=== PATIENT | female | born 1970 | race Caucasian/White ===

== ENCOUNTER 2019-02-14 13:05 | Emergency (ER) | payer MEDICAID ==
[~2019-02-14] VITALS: Ht 157.5 cm; Wt 99.1 kg
[2019-02-14 13:29] VITALS: BP 105/86
[2019-02-14] MEDS ORDERED: HUM SUBQ (13:36)
[2019-02-14] MEDS ORDERED: LANTUS SUBQ (13:36)
[2019-02-14] MEDS ORDERED: TRAM50TA1 PO (13:36)
--- NOTE | 2019-02-14 13:37 | NUR ---
PT TO LOBBY
[2019-02-14] MEDS ORDERED: NACL 0.9% 1,000 ML IV ONE (14:55)
--- NOTE | 2019-02-14 15:17 | NUR ---
PT BIB SELD C/O RLQ ABD, R GROIN PAIN AND NAUSEA X 1 YEAR, WORSE X YESTERDAY. DENIES VOMITING, NO DIARRHEA. NO URINARY COMPLAINTS. TOOK TRAMADOL AT 1100 WITH SOME RELIEF. VSS. ER MD TO SEE PT HX: DIABETES, HTN, HYSTERECTOMY RX: TRAMADOL, HUMALOG, LANTUS, BS: [id number]
[2019-02-14 15:19] LABS: BASOPHILS # (AUTO) 0.1 K/uL (0.00-0.22); BASOPHILS % (AUTO) 0.6 % (0.0-2.0); EOSINOPHILS # (AUTO) 0.2 K/uL (0-0.4); EOSINOPHILS % (AUTO) 2.2 % (0.0-4.0); HEMATOCRIT 42.5 % (36-48); LYMPHOCYTES # (AUTO) 4.1 K/uL (2.5-16.5); LYMPHOCYTES % (AUTO) 37.9 % (20.5-51.1); MEAN CORPUSCULAR HEMOGLOBIN 28 pg (27-31); MEAN CORPUSCULAR HGB CONC 33 g/dL (33-37); MEAN CORPUSCULAR VOLUME 85.4 fL (80-94); MONOCYTES # (AUTO) 0.7 K/uL (0.8-1.0); NEUTROPHILS # (AUTO) 5.8 K/uL (1.8-7.7); NEUTROPHILS % (AUTO) 53.3 % (42.2-75.2); PLATELET COUNT (AUTO) 325 K/uL (140-450); RED BLOOD CELL COUNT(AUTO) 4.97 MIL/uL (4.20-5.40); RED CELL DISTRIBUTION WIDTH 14.1 % (11.6-13.7); WHITE BLOOD COUNT (AUTO) 10.9 K/uL (4.8-10.8)
[2019-02-14 15:29] LABS: APPEARANCE,URINE CLOUDY (CLEAR); BILIRUBIN,URINE NEGATIVE (NEGATIVE); BLOOD, URINE NEGATIVE (NEGATIVE); COLOR,URINE YELLOW (YELLOW); LEUKOCYTE ESTERASE ,URINE NEGATIVE (NEGATIVE); NITRITE, URINE NEGATIVE (NEGATIVE); PH,URINE 5.5 (5.0-9.0); UGLUCOSE 3+ (NEGATIVE)
[2019-02-14 15:37] LABS: ANION GAP 10.7 (8-16); CARBON DIOXIDE 26.3 mmol/L (21-32); CREATININE 0.8 mg/dL (0.6-1.3)
[2019-02-14 15:42] LABS: ALBUMIN 3.4 g/dL (3.4-5.0); TOTAL BILIRUBIN 0.4 mg/dL (0.0-1.0)
--- NOTE | 2019-02-14 16:22 | NUR ---
PT TAKEN TO CT VIA ANDREW
--- NOTE | 2019-02-14 16:22 | NUR ---
PT GOING TO CT AT THIS TIME
--- NOTE | 2019-02-14 17:00 | NUR ---
PT RESTING IN BED W/ EYES OPEN. PT REPORTS PAIN AT A TOLERABLE 6/10. VSS. PT DENIES NAUSEA AT THIS TIME.
[2019-02-14] MEDS ORDERED: KETOROLAC 30 MG/ML VIAL IVP ONE (17:35)
--- NOTE | 2019-02-14 17:36 | NUR ---
RADIOLOGY STAFF STTED THAT CT IS BEING READ AT THIS TIME AND THAT IT HAS BEEN SENT OUT TO BE READ.
--- NOTE | 2019-02-14 17:43 | NUR ---
PT STATED HER PAIN IS AT 8/10 AND WOULD LIKE NON-OPIOD PAIN MEDICINE, ER MD NOTIFIED.
[2019-02-14 18:43] VITALS: BP 115/70
--- NOTE | 2019-02-14 18:44 | NUR ---
Patient discharged with v/s stable. Written and verbal after care instructions given and explained. Patient verbalized understanding. Ambulatory with steady gait. All questions addressed prior to discharge. Advised to follow up with PMD.
== END 2019-02-14 18:44 | disposition home or self-care (01) ==
LOC: MED 13:05
DX: R10.31 Right lower quadrant pain (principal); R35.0 Frequency of micturition; R39.15 Urgency of urination; E11.9 Type 2 diabetes mellitus without complications; Z79.4 Long term (current) use of insulin; Z79.1 Long term (current) use of non-steroidal anti-inflammatories (NSAID); Z90.710 Acquired absence of both cervix and uterus; Z90.89 Acquired absence of other organs; Z98.890 Other specified postprocedural states
CPT/HCPCS: 36415; 74177; 80053; 81003; 82948; 85025; 96374; 99284; J1885; J7030; Q9967

== ENCOUNTER 2019-03-30 12:42 | Emergency (ER) | payer MEDICAID ==
[~2019-03-30] VITALS: Ht 157.5 cm; Wt 98.9 kg
[~2019-03-30 12:42] MED LIST: HUM SUBQ; LANTUS SUBQ; TRAM50TA1 PO
[2019-03-30 12:51] VITALS: BP 149/72
--- NOTE | 2019-03-30 13:21 | NUR ---
PT AMBULATED TO BED 01.
--- NOTE | 2019-03-30 13:38 | NUR ---
pt is 48yrs F c/o left hand pain radiating up to the elbowx 1 month. Pain 8/10 sharp. Took tramadol 50 mg today to mild relief. Denies trauma, numbness, tingling, repetitive motions. Unable to grasps objects easily. Per pt , pain has been there since last two months, started to hurt badly since yesterday. Pian increases with touch on the inner side of the palm. Denies N,V, Chills or fever at this time. Pt seen by ER md, to get the X-Ray. will continue to monitor pt. Hx- HLD, DM, HTN, asthma , Hystrectomy.
[2019-03-30] MEDS ORDERED: KETOROLAC 60 MG/2 ML VIAL IM ONE (13:40)
[2019-03-30 14:38] VITALS: BP 149/72
--- NOTE | 2019-03-30 14:41 | NUR ---
Patient discharged with v/s stable. Written and verbal after care instructions given and explained. Patient alert, oriented and verbalized understanding of instructions. Ambulatory with steady gait. All questions addressed prior to discharge. ID band removed. Patient advised to follow up with PMD. Rx of robaxin, medrol dosepak and motrin given. Patient educated on indication of medication including possible reaction and side effects. Opportunity to ask questions provided and answered.
== END 2019-03-30 14:41 | disposition home or self-care (01) ==
LOC: MED 12:42
DX: M54.12 Radiculopathy, cervical region (principal); M79.642 Pain in left hand; M79.641 Pain in right hand; I10 Essential (primary) hypertension; E11.9 Type 2 diabetes mellitus without complications; Z90.89 Acquired absence of other organs; Z90.710 Acquired absence of both cervix and uterus; Z79.4 Long term (current) use of insulin
CPT/HCPCS: 72040; 73130; 96372; 99283; J1885

== ENCOUNTER 2020-02-04 16:51 | Emergency (ER) | payer MEDICAID ==
[~2020-02-04] VITALS: Ht 157.5 cm; Wt 95.3 kg
[2020-02-04 16:56] VITALS: BP 149/83
--- NOTE | 2020-02-04 17:13 | NUR ---
49 YO FEMALE C/O RIGHT SIDE UPPER BACK PAIN/ITCHINESS X3 WEEKS. PT HAS BEEN TAKING TYLENOL FOR PAIN, BUT IT IS NOT HELPING. DENIES ANY DYSURIA, URINARY FREQUENCY. PMH: DM2, ARTHRITIS, ASTHMA, NKA
[2020-02-04] MEDS ORDERED: KETOROLAC 60 MG/2 ML VIAL IM ONE (17:20)
[2020-02-04 17:42] LABS: BASOPHILS # (AUTO) 0.1 K/uL (0.00-0.22); BASOPHILS % (AUTO) 0.7 % (0.0-2.0); EOSINOPHILS # (AUTO) 0.3 K/uL (0-0.4); EOSINOPHILS % (AUTO) 2.9 % (0.0-4.0); HEMATOCRIT 42.2 % (36-48); HEMOGLOBIN 13.6 g/dL (12.0-16.0); LYMPHOCYTES # (AUTO) 3.9 K/uL (2.5-16.5); MEAN CORPUSCULAR HEMOGLOBIN 28 pg (27-31); MEAN CORPUSCULAR HGB CONC 32 g/dL (33-37); MEAN CORPUSCULAR VOLUME 87.1 fL (80-94); MONOCYTES # (AUTO) 0.7 K/uL (0.8-1.0); MONOCYTES % (AUTO) 6.7 % (1.7-9.3); NEUTROPHILS # (AUTO) 5.6 K/uL (1.8-7.7); NEUTROPHILS % (AUTO) 52.7 % (42.2-75.2); PLATELET COUNT (AUTO) 360 K/uL (140-450); RED BLOOD CELL COUNT(AUTO) 4.84 MIL/uL (4.20-5.40); RED CELL DISTRIBUTION WIDTH 14.5 % (11.6-13.7); WHITE BLOOD COUNT (AUTO) 10.6 K/uL (4.8-10.8)
[2020-02-04 17:43] LABS: APPEARANCE,URINE CLEAR (CLEAR); BILIRUBIN,URINE NEGATIVE (NEGATIVE); BLOOD, URINE NEGATIVE (NEGATIVE); COLOR,URINE YELLOW (YELLOW); LEUKOCYTE ESTERASE ,URINE NEGATIVE (NEGATIVE); NITRITE, URINE NEGATIVE (NEGATIVE); PH,URINE 5.5 (5.0-9.0); UGLUCOSE 2+ (NEGATIVE)
[2020-02-04 17:54] LABS: ALBUMIN 3.4 g/dL (3.4-5.0); ANION GAP 12.9 (8-16); CARBON DIOXIDE 28.8 mmol/L (21-32); CREATININE 0.7 mg/dL (0.6-1.3); POTASSIUM 4.7 mmol/L (3.5-5.1); TOTAL BILIRUBIN 0.4 mg/dL (0.0-1.0)
[2020-02-04 18:30] VITALS: BP 149/83
--- NOTE | 2020-02-04 18:30 | NUR ---
Patient discharged with v/s stable. Written and verbal after care instructions given and explained. Patient alert, oriented and verbalized understanding of instructions. Ambulatory with steady gait. All questions addressed prior to discharge. ID band removed. Patient advised to follow up with PMD. Rx of SULFACETAMIDE SODIUM given. Patient educated on indication of medication including possible reaction and side effects. Opportunity to ask questions provided and answered.
== END 2020-02-04 18:29 | disposition home or self-care (01) ==
LOC: MED 16:51
DX: S23.3XXA Sprain of ligaments of thoracic spine, initial encounter (principal); H10.9 Unspecified conjunctivitis; J45.909 Unspecified asthma, uncomplicated; E11.9 Type 2 diabetes mellitus without complications; I10 Essential (primary) hypertension; Z79.4 Long term (current) use of insulin; Z98.890 Other specified postprocedural states; Z79.899 Other long term (current) drug therapy; X58.XXXA Exposure to other specified factors, initial encounter; Y93.89 Activity, other specified; Y92.89 Other specified places as the place of occurrence of the external cause; Y99.8 Other external cause status
CPT/HCPCS: 36415; 80053; 81003; 85025; 96372; 99283; J1885

== ENCOUNTER 2021-03-26 17:15 | Emergency (ER) | payer MEDICAID, OTHER ==
[~2021-03-26] VITALS: Ht 157.5 cm; Wt 89.8 kg
[2021-03-26 17:25] VITALS: BP 144/74
[2021-03-26] MEDS ORDERED: NACL 0.9% 500 ML IV ONE (18:00)
[2021-03-26] MEDS ORDERED: MORPHINE SULFATE 4 MG/ML SYR IVP ONE (18:00)
[2021-03-26] MEDS ORDERED: METOCLOPRAMIDE 10 MG/2 ML INJ VIAL IVP ONE (18:00)
--- NOTE | 2021-03-26 18:16 | NUR ---
50 YO FEMALE BIBS WITH C/O 8/10 UPPER BACK PAIN X 2 WEEKS. PAIN DESCRIBED 8/10, BURNING, MORE ON RIGHT SIDE THAN LEFT. DENIES TRAUMA OR INJURY TO AREA. ALSO REPORTS PALPITATIONS, WEAKNESS AND BODY ACHES. LAST TYLENOL TAKEN LAST NIGHT. A&OX4, VSS. PMH: DM, ASTHMA MEDS: ALBUTEROL, INSULIN, METFORMIN NKA
[2021-03-26 18:17] LABS: BASOPHILS # (AUTO) 0.1 K/uL (0.00-0.22); BASOPHILS % (AUTO) 0.7 % (0.0-2.0); EOSINOPHILS # (AUTO) 0.3 K/uL (0-0.4); EOSINOPHILS % (AUTO) 2.3 % (0.0-4.0); HEMATOCRIT 37.6 % (36-48); HEMOGLOBIN 12.4 g/dL (12.0-16.0); LYMPHOCYTES # (AUTO) 4.7 K/uL (2.5-16.5); LYMPHOCYTES % (AUTO) 41.2 % (20.5-51.1); MEAN CORPUSCULAR HEMOGLOBIN 29 pg (27-31); MEAN CORPUSCULAR HGB CONC 33 g/dL (33-37); MEAN CORPUSCULAR VOLUME 88.2 fL (80-94); MONOCYTES # (AUTO) 0.7 K/uL (0.8-1.0); MONOCYTES % (AUTO) 6.1 % (1.7-9.3); NEUTROPHILS # (AUTO) 5.7 K/uL (1.8-7.7); NEUTROPHILS % (AUTO) 49.7 % (42.2-75.2); PLATELET COUNT (AUTO) 353 K/uL (140-450); RED BLOOD CELL COUNT(AUTO) 4.26 MIL/uL (4.20-5.40); WHITE BLOOD COUNT (AUTO) 11.5 K/uL (4.8-10.8)
--- NOTE | 2021-03-26 18:23 | NUR ---
PER ERMD 12 LEAD WAS DONE ON PT AND CAME BACK NSR AT 92 HR.
[2021-03-26 18:30] LABS: ALBUMIN 3.1 g/dL (3.4-5.0); ANION GAP 11.3 (8-16); CARBON DIOXIDE 28.5 mmol/L (21-32); CREATININE 0.7 mg/dL (0.6-1.3); POTASSIUM 3.8 mmol/L (3.5-5.1); TOTAL BILIRUBIN 0.2 mg/dL (0.0-1.0)
--- NOTE | 2021-03-26 18:39 | NUR ---
LACTIC ACID 2.6, MADE AWARE.
[2021-03-26 19:14] LABS: BILIRUBIN,URINE NEGATIVE (NEGATIVE); BLOOD, URINE NEGATIVE (NEGATIVE); LEUKOCYTE ESTERASE ,URINE NEGATIVE (NEGATIVE); NITRITE, URINE NEGATIVE (NEGATIVE); UGLUCOSE 3+ (NEGATIVE)
[2021-03-26 19:17] LABS: APPEARANCE,URINE CLEAR (CLEAR); COLOR,URINE STRAW (YELLOW)
--- NOTE | 2021-03-26 19:26 | NUR ---
REPORT AND CONTINUATION OF CARE GIVEN TO CRISTA DELCID.
[2021-03-26] MEDS ORDERED: HYDROcodone/APAP 5/325 MG 1 TAB TAB PO ONE (19:50)
--- NOTE | 2021-03-26 20:12 | NUR ---
LAB WILL PERFORM TEST AT THIS TIME.
--- NOTE | 2021-03-26 20:21 | NUR ---
PER LAB HCG NEG, CT NOTIFIED
--- NOTE | 2021-03-26 22:50 | NUR ---
PATIENT CLEARED FOR DISCHARGE WITH NO FURTHER COMPLAITNS OR QUESTIONS. ADVISED TO FOLLOW UP WITH PCP AND RETURN IF CONDITION WORSENS.
[2021-03-26 22:51] VITALS: BP 137/83
--- NOTE | 2021-03-27 19:34 | NUR ---
LATE ENTRY- NORMAL SALINE 0.9% DISCONTINUED AT 1200
== END 2021-03-26 22:50 | disposition home or self-care (01) ==
LOC: MED 17:15
DX: R10.13 Epigastric pain (principal); Z79.899 Other long term (current) drug therapy
CPT/HCPCS: 36415; 71045; 74177; 76700; 80053; 81003; 83605; 83690; 84484; 85025; 93005; 96361; 96374; 99285; J2765; J7030; Q0092; Q9967; J2270

== ENCOUNTER 2021-12-03 21:22 | Emergency (ER) | payer OTHER ==
[~2021-12-03] VITALS: Ht 152.4 cm; Wt 90.7 kg
[2021-12-03 21:56] VITALS: BP 141/85
--- NOTE | 2021-12-03 22:30 | NUR ---
RECEIVED IN BED 9 FROM LOBBY WITH C/O L SIDED PELVIC PAIN RADIATING TO L LOWER BACK X 5 DAYS. DENIES URINARY BURNING, FREQUENCY, OR INJURY TO AREA. MEDHX: DIABETES II, HTN NKA SURGICAL HX: HERNIA REPAIR, APENDIX, HYSTERECTOMY.
[2021-12-03 22:46] LABS: APPEARANCE,URINE CLEAR (CLEAR); BILIRUBIN,URINE NEGATIVE (NEGATIVE); BLOOD, URINE NEGATIVE (NEGATIVE); COLOR,URINE YELLOW (YELLOW); LEUKOCYTE ESTERASE ,URINE NEGATIVE (NEGATIVE); NITRITE, URINE NEGATIVE (NEGATIVE); UGLUCOSE 3+ (NEGATIVE)
[2021-12-03] MEDS ORDERED: KETOROLAC 30 MG/ML VIAL IM ONE (22:50)
--- NOTE | 2021-12-03 22:58 | NUR ---
LAB AT BEDSIDE
[2021-12-03 23:17] LABS: BASOPHILS # (AUTO) 0.1 K/uL (0.00-0.22); BASOPHILS % (AUTO) 0.8 % (0.0-2.0); EOSINOPHILS # (AUTO) 0.3 K/uL (0-0.4); EOSINOPHILS % (AUTO) 2.8 % (0.0-4.0); HEMATOCRIT 43.4 % (36-48); HEMOGLOBIN 14.5 g/dL (12.0-16.0); LYMPHOCYTES # (AUTO) 4.3 K/uL (2.5-16.5); LYMPHOCYTES % (AUTO) 39.5 % (20.5-51.1); MEAN CORPUSCULAR HEMOGLOBIN 28 pg (27-31); MEAN CORPUSCULAR HGB CONC 33 g/dL (33-37); MEAN CORPUSCULAR VOLUME 85.3 fL (80-94); MONOCYTES # (AUTO) 1.1 K/uL (0.8-1.0); MONOCYTES % (AUTO) 10.1 % (1.7-9.3); NEUTROPHILS % (AUTO) 46.8 % (42.2-75.2); PLATELET COUNT (AUTO) 360 K/uL (140-450); RED BLOOD CELL COUNT(AUTO) 5.09 MIL/uL (4.20-5.40); WHITE BLOOD COUNT (AUTO) 10.8 K/uL (4.8-10.8)
[2021-12-03 23:31] LABS: ALBUMIN 3.4 g/dL (3.4-5.0); ANION GAP 9.2 (8-16); CARBON DIOXIDE 28.8 mmol/L (21-32); CREATININE 0.8 mg/dL (0.6-1.3); TOTAL BILIRUBIN 0.5 mg/dL (0.0-1.0)
[2021-12-04] MEDS ORDERED: NAPR-54 PO (01:02)
[2021-12-04 01:15] VITALS: BP 138/72
== END 2021-12-04 01:15 | disposition home or self-care (01) ==
LOC: MED 21:22
DX: N83.202 Unspecified ovarian cyst, left side (principal); N83.201 Unspecified ovarian cyst, right side; J45.909 Unspecified asthma, uncomplicated; E11.9 Type 2 diabetes mellitus without complications; I10 Essential (primary) hypertension; Z79.1 Long term (current) use of non-steroidal anti-inflammatories (NSAID); Z79.891 Long term (current) use of opiate analgesic; Z79.4 Long term (current) use of insulin
CPT/HCPCS: 36415; 74176; 80053; 81003; 85025; 96372; 99284; J1885; 99285

== ENCOUNTER 2022-05-08 07:07 | Day surgery (SDC) | payer OTHER ==
[~2022-05-08] VITALS: Ht 160 cm; Wt 90.7 kg
[~2022-05-08 07:07] MED LIST changes: +NAPR-54 PO; +TRAM-748 PO; -TRAM50TA1 PO
[2022-05-08] MEDS ORDERED: fentaNYL citrate 0.05 MG/ML VIAL ONE (08:01)
[2022-05-08] MEDS ORDERED: MIDAZOLAM 2 MG/2 ML VIAL ONE (08:01)
[2022-05-08] MEDS ORDERED: LIDOCAINE 2% 100 MG/5 ML UJET TP ONE (08:01)
[2022-05-08] MEDS ORDERED: MIDAZOLAM 2 MG/2 ML VIAL IVP ONE (09:55)
[2022-05-08] MEDS ORDERED: fentaNYL citrate 0.05 MG/ML VIAL IVP ONE (09:55)
== END 2022-05-08 10:18 | disposition home or self-care (01) ==
LOC: MOR 07:07 → MMU 07:07 → MOR 10:18
PROVIDERS: ATTEND Internal Medicine Gastroenterology
DX: Z12.11 Encounter for screening for malignant neoplasm of colon (principal); K63.5 Polyp of colon; K29.70 Gastritis, unspecified, without bleeding; K21.9 Gastro-esophageal reflux disease without esophagitis; E11.9 Type 2 diabetes mellitus without complications; E78.5 Hyperlipidemia, unspecified; Z79.899 Other long term (current) drug therapy; Z20.822 Contact with and (suspected) exposure to COVID-19
CPT/HCPCS: 36415; 43239; 45385; 86677; 87426; J2250; J3010

== ENCOUNTER 2022-06-02 16:12 | Emergency (ER) | payer OTHER ==
[~2022-06-02] VITALS: Ht 157.5 cm; Wt 95.7 kg
[2022-06-02 16:25] VITALS: BP 136/71
[2022-06-02] MEDS ORDERED: ASPIRIN 325 MG TAB PO ONE (16:35)
[2022-06-02] MEDS ORDERED: NACL 0.9% 1,000 ML IV ONE (16:35)
--- NOTE | 2022-06-02 16:35 | NUR ---
PT AMB TO BED 9.
[2022-06-02 17:15] LABS: BASOPHILS # (AUTO) 0.1 K/uL (0.00-0.22); BASOPHILS % (AUTO) 0.6 % (0.0-2.0); EOSINOPHILS # (AUTO) 0.3 K/uL (0-0.4); EOSINOPHILS % (AUTO) 2.6 % (0.0-4.0); HEMATOCRIT 41.1 % (36-48); HEMOGLOBIN 13.5 g/dL (12.0-16.0); LYMPHOCYTES # (AUTO) 4.1 K/uL (2.5-16.5); LYMPHOCYTES % (AUTO) 31.9 % (20.5-51.1); MEAN CORPUSCULAR HEMOGLOBIN 28 pg (27-31); MEAN CORPUSCULAR HGB CONC 33 g/dL (33-37); MEAN CORPUSCULAR VOLUME 85.3 fL (80-94); MONOCYTES # (AUTO) 1.1 K/uL (0.8-1.0); MONOCYTES % (AUTO) 8.3 % (1.7-9.3); NEUTROPHILS # (AUTO) 7.2 K/uL (1.8-7.7); NEUTROPHILS % (AUTO) 56.6 % (42.2-75.2); PLATELET COUNT (AUTO) 379 K/uL (140-450); RED BLOOD CELL COUNT(AUTO) 4.81 MIL/uL (4.20-5.40); RED CELL DISTRIBUTION WIDTH 14.1 % (11.6-13.7); WHITE BLOOD COUNT (AUTO) 12.8 K/uL (4.8-10.8)
[2022-06-02 18:58] LABS: ALBUMIN 3.4 g/dL (3.4-5.0); ANION GAP 15.2 (8-16); ASPARTATE AMINOTRANSFERASE 18 U/L (15-37); CARBON DIOXIDE 27.7 mmol/L (21-32); CHLORIDE 102 mmol/L (98-107); CREATININE 0.8 mg/dL (0.6-1.3); GFR ARICAN-AMERICAN 96 mL/min (>90); GLUCOSE 291 mg/dL (74-106); LIPASE 254 U/L (73-393); POTASSIUM 3.9 mmol/L (3.5-5.1); SODIUM SERUM 141 mmol/L (136-145); TOTAL BILIRUBIN 0.3 mg/dL (0.0-1.0); UREA NITROGEN, BLOOD 19 mg/dL (7-18)
--- NOTE | 2022-06-02 19:28 | NUR ---
Assumed care of pt and pt is in bed resting with no s/s of distress. VSS. A&Ox4. Skin intact. Ambulatory with steady gait. Has no c/o at this time. Bed in lowest position. Has a 20g IV on left forearm with no infiltration noted. Saline lock.
[2022-06-02 19:52] VITALS: BP 115/74
== END 2022-06-02 19:52 | disposition home or self-care (01) ==
LOC: MED 16:12
DX: R07.89 Other chest pain (principal); Z20.822 Contact with and (suspected) exposure to COVID-19; E11.9 Type 2 diabetes mellitus without complications; Z79.4 Long term (current) use of insulin; Z79.899 Other long term (current) drug therapy
CPT/HCPCS: 36415; 71045; 80053; 83690; 84484; 85025; 87426; 87804; 93005; 96360; 99285; J7030

== ENCOUNTER 2023-12-28 17:09 | Emergency (ER) | payer OTHER ==
[~2023-12-28] VITALS: Ht 160 cm; Wt 95.3 kg
[2023-12-28 17:20] VITALS: BP 147/74; PULSE 85; RESP 24; TEMP 98.1; O2SAT 98
[2023-12-28 18:42] VITALS: O2SAT 98
[2023-12-28 19:24] LABS: BASOPHILS # (AUTO) 0.1 K/uL (0.00-0.22); BASOPHILS % (AUTO) 1.1 % (0.0-2.0); EOSINOPHILS # (AUTO) 0.8 K/uL (0-0.4); EOSINOPHILS % (AUTO) 7.1 % (0.0-4.0); HEMATOCRIT 39.7 % (36-48); HEMOGLOBIN 13.2 g/dL (12.0-16.0); LYMPHOCYTES # (AUTO) 4.6 K/uL (2.5-16.5); LYMPHOCYTES % (AUTO) 39.5 % (20.5-51.1); MEAN CORPUSCULAR HEMOGLOBIN 29 pg (27-31); MEAN CORPUSCULAR HGB CONC 33 g/dL (33-37); MEAN CORPUSCULAR VOLUME 86.3 fL (80-94); MONOCYTES % (AUTO) 8.6 % (1.7-9.3); NEUTROPHILS # (AUTO) 5.1 K/uL (1.8-7.7); NEUTROPHILS % (AUTO) 43.7 % (42.2-75.2); PLATELET COUNT (AUTO) 321 K/uL (140-450); RED CELL DISTRIBUTION WIDTH 13.5 % (11.6-13.7); WHITE BLOOD COUNT (AUTO) 11.7 K/uL (4.8-10.8)
[2023-12-28 19:39] LABS: ANION GAP 14.3 (8-16); CALCIUM 8.8 mg/dL (8.5-10.1); CARBON DIOXIDE 26.3 mmol/L (21-32); CREATININE 0.6 mg/dL (0.6-1.3); POTASSIUM 3.6 mmol/L (3.5-5.1)
[2023-12-28 19:42] LABS: ALBUMIN 3.1 g/dL (3.4-5.0); BILIRUBIN,DIRECT 0.1 mg/dL (0.0-0.3); THYROID STIMULATING HORMONE 2.05 uIU/mL (0.34-3.74); TOTAL BILIRUBIN 0.3 mg/dL (0.0-1.0); TOTAL PROTEIN, SERUM 7.3 g/dL (6.4-8.2)
[2023-12-28] MEDS ORDERED: NAPR-1704 PO (20:12)
== END 2023-12-28 20:25 | disposition home or self-care (01) ==
LOC: MED 17:09
DX: M72.2 Plantar fascial fibromatosis (principal); R00.2 Palpitations; J45.909 Unspecified asthma, uncomplicated; E11.9 Type 2 diabetes mellitus without complications; I10 Essential (primary) hypertension; Z90.49 Acquired absence of other specified parts of digestive tract; Z90.710 Acquired absence of both cervix and uterus; Z98.890 Other specified postprocedural states; Z79.1 Long term (current) use of non-steroidal anti-inflammatories (NSAID)
CPT/HCPCS: 36415; 71045; 73650; 80048; 80076; 84443; 84484; 85025; 93005; 99285

== ENCOUNTER 2024-01-31 11:02 | Emergency (ER) | payer OTHER ==
[~2024-01-31] VITALS: Ht 157.5 cm; Wt 95.3 kg
[~2024-01-31 11:02] MED LIST changes: -HUM SUBQ; -LANTUS SUBQ; +NAPR-1704 PO; -NAPR-54 PO; -TRAM-748 PO
[2024-01-31 11:28] VITALS: BP 152/87; PULSE 124; RESP 22; TEMP 97.3; O2SAT 100
[2024-01-31] MEDS: KETOROLAC 30 MG/ML VIAL IM ONE (12:21)
[2024-01-31 13:33] VITALS: BP 135/70; PULSE 98; RESP 12; TEMP 207.1; O2SAT 100
== END 2024-01-31 13:33 | disposition home or self-care (01) ==
LOC: MED 11:02
DX: M77.32 Calcaneal spur, left foot (principal); J45.909 Unspecified asthma, uncomplicated; E11.9 Type 2 diabetes mellitus without complications; I10 Essential (primary) hypertension; Z79.1 Long term (current) use of non-steroidal anti-inflammatories (NSAID)
CPT/HCPCS: 73630; 81025; 82948; 96372; 99283; J1885